=== PATIENT | male | born 2005 | race Two or more races ===

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

== ENCOUNTER 2025-02-02 00:50 | Emergency (ER) | payer BC, SELFPAY ==
[2025-02-02 00:51] VITALS: BMI 23.4
[2025-02-02 01:14] VITALS: BP 111/71; PULSE 61; RESP 18; TEMP 37.1; O2SAT 97
--- NOTE | 2025-02-02 02:28 | PD.EDRECHK ---
ED Recheck Abnl Lab Rx-RME/HPI General Chief Complaint: General Adult/Misc Complain Stated Complaint: POSS SPRAYED BY SKUNK Time Seen by Provider: 02/02/25 01:29 Arrival date/time: 02/02/25 00:50 19M with no significant PMH presents to ED wondering if he needs a rabies shot due to possible exposure to the skunk's stink spray. Patient denies any physical contact as the closest the skunk got to patient was about 3 feet away. Limitations: no limitations Related Data Previous Rx's ?Medication ?Instructions ?Recorded diphenhydramine HCl 2 % topical 1 applic topical BID PRN itching 02/12/23 gel (Benadryl) #103 mL Allergies Allergy/AdvReac Type Severity Reaction Status Date / Time No Known Allergies Allergy Verified 02/12/23 13:51 Review of Systems Review of Systems Systems Reviewed: All systems reviewed, normal except as documented Past Medical History Past Medical History CARDIAC: Negative Congestive Heart Failure RESPIRATORY: Negative Chronic Obstructive Pulmonary Disease (COPD) GENITOURINARY: Negative Renal Disease ENDOCRINE: Negative Diabetes Mellitus Type 1 or Diabetes Mellitus Type 2 Social History SMOKING STATUS: Never smoker ED Exam General Limitations: Present no limitations General appearance: Present alert and in no apparent distress Head Head exam: Present atraumatic Neck Neck exam: Present normal inspection, full ROM and trachea midline Chest Chest inspection: Present normal inspection and symmetric chest wall rise Extremities Exam Extremities exam: Present normal inspection and full ROM Back Exam Back exam: Present normal inspection and full ROM Neurological Exam Neurological exam: Present alert and oriented X3 Psychiatric Psychiatric exam: Present normal affect and normal mood Skin Skin exam: Present warm, dry, intact and normal color Course Quality Measures none Vital Signs Vital signs: Vital Signs Temperature 98.7 F 02/02/25 01:14 Pulse Rate 61 02/02/25 01:14 Respiratory Rate 18 02/02/25 01:14 Blood Pressure 111/71 02/02/25 01:14 Pulse Oximetry (%) 97 02/02/25 01:14 Oxygen Delivery Method Room Air 02/02/25 01:14 O2 at 97% on RA and WNLs Recheck / Abnormal Lab / Rx MDM Narrative MDM Narrative:: 19M with no significant PMH presents to ED wondering if he needs a rabies shot due to possible exposure to the skunk's stink spray. Patient denies any physical contact as the closest the skunk got to patient was about 3 feet away. Physical exam reveals well-appearing male. Patient is afebrile, calm, and alert. Counseled does not need rabies for this. Patient data External records reviewed:: [facility] previous records Clinical information provided by:: patient Social determinants that could affect healthcare access:: none Patient has the following chronic illnesses:: none How is presenting disease/condition affected by chronic disease/condition?: no chronic disease Evaluation data The following diagnostics were reviewed and interpreted by me:: other (specify) (none) Lab and/or radiology exams considered but not ordered:: not ordered Interpretation Summary: n/a Medications / Prescriptions Medications or Prescriptions considered but not ordered:: not ordered Medication administrations:: n/a Consultations Consultation(s) initiated? (list below): No Diagnosis Recheck Differential Diagnosis: encounter for medication refill, encounter for wound recheck, encounter for recheck of burn, encounter for removal of sutures, warfarin-induced coagulopathy and other (vaccine counseling) Most likely diagnosis given after review of the tests above:: vaccine counseling Admission Indicated Admission indicated?: not indicated Admission Request Was there a request for admission?: No Disposition Plan Disposition Plan: Discharge Discharge Attestation Discharge Attestation: The patient and all family members were given an opportunity to ask questions and understood the discharge instructions. Discharge instructions specifically effects, indications for sooner follow up or return to the emergency department, and the expected course of current diagnosis. Patient condition: Stable Discharge Plan Plan Patient Disposition: HOME (Self Care) Discharge Disposition comment: Stable Prescriptions/Referrals Prescriptions/Med Rec: No Action Benadryl 2 % gel 1 applic topical BID PRN (Reason: itching) Qty: 103 0RF Problem List Clinical Impression: Vaccine counseling Patient/Caregiver Discharge Instructions Additional Instructions: Please follow-up with PCP within 24-48 hours and return immediately if symptoms worsen. Print Language: [place]er Stand Alone Forms: Patient Portal Info Letter ZACKARY/ARI Supervising Physician ZACKARY/ARI Supervising Physician: Dr. Foreman
== END 2025-02-02 01:39 | disposition home or self-care (01) ==
LOC: SERX 02:59
PROVIDERS: Emergency Provider Emergency Medicine; PCP Internal Medicine
DX: Z71.85 Encounter for immunization safety counseling (principal)
CPT/HCPCS: 99281